=== PATIENT | male | born 1985 | race Caucasian/White ===

== ENCOUNTER 2016-10-21 17:11 | Emergency (ER) | payer OTHER ==
[2016-10-21] MEDS ORDERED: FLUORESCEIN OPHTH 1 MG STRIP As Ordered ONE (21:25)
[2016-10-21] MEDS ORDERED: TETRACAINE 0.5% OPHTH SOLN 4ML As Ordered ONE (21:25)
[2016-10-21] MEDS ORDERED: NORCO, ANEXSIA 5/325MG TABLET (HYDROcodone/ACETAMINOPHEN) As Ordered ONE (21:56)
[2016-10-21] MEDS ORDERED: ADACEL/BOOSTRIX VACCINE (DIPHTH/PERTUSS/ACELL/TETANUS)0.5ML SYR (90715) As Ordered ONE (21:56)
[2016-10-21] MEDS ORDERED: ERYTHROMYCIN OPHTH OINT As Ordered ONE (21:56)
--- NOTE | 2016-10-21 22:23 | EDDOCDS ---
Physician Documentation [facility] Name: Hernan Sosa Age: 30 yrs Sex: Male : 1985 Arrival Date: 10/21/2016 Time: 17:11 Bed I10 / 23 Private MD: NO PRIMARY PHYSICIAN, . Disposition: 10/21/16 21:39 Discharged to Home/Self Care. Impression: Injury of conjunctiva and corneal abrasion without foreign body, right eye - with rust ring present . - Condition is Stable. - Discharge Instructions: Corneal Abrasion. - Prescriptions for [place] 5- 325 mg Oral Tablet - take 1 tablet by ORAL route every 6 hours As needed MDD: 4 tabs; 12 tablet. Erythromycin 5 mg/gram (0.5 %) Ophthalmic Ointment - apply 1 centimeter by OPHTHALMIC route 2-3 times daily for 7 days; 1 tube. - Medication Reconciliation, Work Release Form - 3 day, Local Pharmacy Hours form. - Follow up: Bernard Morales; When: Call to arrange an appointment; Reason: Recheck today's complaints, Continuance of care. - Problem is new. - Symptoms are unchanged. - Notes: use erythromycin ointment in right eye every 8hrs Historical: - Allergies: no known allergies; - Home Meds: 1. none - PMHx: Hypertension; - PSHx: Hernia repair; - Social history: Smoking status: Patient states was never smoker of tobacco. No barriers to communication noted, The patient speaks fluent S[place] Tome[place], Speaks appropriately for age. - Family history: Not pertinent. - : The pt / caregiver states he / she is not on anticoagulants. Home medication list is obtained from the patient. - Exposure Risk Screening:: None identified. Vital Signs: 10/21 17:14 BP 161 / 76; Pulse 72; Resp 18 S; Temp 97.1(O); Pulse Ox 100% on R/A; Weight 90.72 kg / gr2 200 lbs (R); Height 6 ft. 0 in. (182.88 cm) (R); Pain 8/10; 22:21 BP 151 / 72; Pulse 70; Resp 16; Temp 97.2; Pulse Ox 100% on R/A; ld5 17:14 Body Mass Index 27.12 (90.72 kg, 182.88 cm) gr2 Visual Acuity: 20:31 Left Eye Visual acuity 20/40, Pupil size 3 mm, ; Right Eye Visual acuity 20/40, Pupil cz size 3 mm, ; Both Eyes Visual acuity 20/40; Without Lenses; MDM: 18:38 Visual Acuity ordered. dt4 18:38 Misc. Nursing Order ordered. dt4 21:21 Fluorescein Strip 1 strips Ophthalmic once ordered. mo1 21:21 Tetracaine (PF) Drops 0.5 % 2 drps Ophthalmic once ordered. mo1 21:41 HYDROcodone-acetaminophen 5 mg-325 mg 1 tabs PO once ordered. mo1 21:41 Tetanus- Diptheria-Acellular Pertussis 0.5 ml IM once; Routine booster 10-64yrs, >64 mo1 with child contact [place] [employer] ordered. 21:41 erythromycin Ointment 1 applic Ophthalmic once ordered. 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 Exp: 11/16/2018. Lot #: [id number]. } Route: IM; Site: left deltoid; 22:07 Drug: HYDROcodone-acetaminophen 1 tabs [hydrocodone 5 mg-acetaminophen 325 mg tablet (1 cjh tabs)] Route: PO; 22:21 Follow up: Response: Confirmed pt not driving.; Pt left department before re-evaluation ld5 is appropriate 22:07 Drug: erythromycin 1 applic [erythromycin 5 mg/gram (0.5 %) eye ointment (1 applic)] [facility] Route: Ophthalmic; Site: right eye; Signatures: Magdaleno Leonardo RN RN cz Rosalia Rizo RN RN ld5 Francois Pena PA PA mo1 Anette Messer PA-C PAEmekaC dt4 Tri Murphy RN [facility]
--- NOTE | 2016-10-21 22:24 | EDDOCDS ---
Nurse's Notes [facility] Name: Hernan Sosa Age: 30 yrs Sex: Male : 1985 Arrival Date: 10/21/2016 Time: 17:11 Bed I10 / 23 Private MD: NO PRIMARY PHYSICIAN, . Diagnosis: Injury of conjunctiva and corneal abrasion without foreign body, right eye-with rust ring present Presentation: 10/21 17:27 Presenting complaint: Patient states: Pt believes he has a piece of metal stuck in his ld5 eye. Happened yesterday at work. Mechanism of Injury: Grinding. The patient reports a positive loss of vision. The patient's loss of vision began yesterday. Adult Sepsis Screening: The patient does not have new or worsening altered mentation. Patient's respiratory rate is less than 22. Systolic blood pressure is greater than 100. Patient has a qSOFA score of 0- Negative Sepsis Screen. Suicide/Homicide risk assessment- the patient denies having any suicidal and/or homicidal ideations and does not present with any other emotional, behavioral or mental health complaints. 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 Transition of care: patient was not received from another setting of care. 17:27 Acuity: RAFAELA Level 4 ld5 17:27 Method Of Arrival: Walkin/Carried/Asstd ld5 Triage Assessment: 17:29 General: Appears uncomfortable. Pain: Location: right eye Pain currently is 8 out of 10 ld5 on a pain scale. Pain began 1 day ago. HIV screening NA for this visit Offered previously. EENT: redness to right eye, swelling around right eye, watering noted from eye. Respiratory: Airway is patent. Historical: - Allergies: no known allergies; - Home Meds: 1. none - PMHx: Hypertension; - PSHx: Hernia repair; - Social history: Smoking status: Patient states was never smoker of tobacco. No barriers to communication noted, The patient speaks fluent Kiswahili, Speaks appropriately for age. - Family history: Not pertinent. - : The pt / caregiver states he / she is not on anticoagulants. Home medication list is obtained from the patient. - Exposure Risk Screening:: None identified. Screenin:31 Screening information is obtained from the patient. Fall risk: No risks identified. cz Assistance ADL's: requires no assistance with activities of daily living. Abuse/DV Screen: The patient / caregiver reports he/she is: not in a situation that causes fear, pain or injury. Nutritional screening: No deficits noted. home support is adequate. 22:21 Advance Directives: There is no active DNR order. ld5 Assessment: 20:31 General: alert male with right eye redness and discomfort question f.b.. cz 21:27 General: Appears in no apparent distress, comfortable, Behavior is appropriate for age, h cooperative, awaiting evaluation, assisted patient in finding bathroom, ambulates with steady gate, no assist required. 22:21 General: Appears in no apparent distress. Pain: Location: right eye. Neurological: ld5 Level of Consciousness is awake, alert. Respiratory: Airway is patent Respiratory effort is even, unlabored. Vital Signs: 17:14 BP 161 / 76; Pulse 72; Resp 18 S; Temp 97.1(O); Pulse Ox 100% on R/A; Weight 90.72 kg gr2 (R); Height 6 ft. 0 in. (182.88 cm) (R); Pain 8/10; 22:21 BP 151 / 72; Pulse 70; Resp 16; Temp 97.2; Pulse Ox 100% on R/A; ld5 17:14 Body Mass Index 27.12 (90.72 kg, 182.88 cm) gr2 Vitals: 17:14 Log In Time: October 21, 2016 at 17:14. gr2 Visual Acuity: 20:31 Left Eye Visual acuity 20/40, Pupil size 3 mm, ; Right Eye Visual acuity 20/40, Pupil cz size 3 mm, ; Both Eyes Visual acuity 20/40; Without Lenses; ED Course: 17:12 Patient visited by Charo Ansari. gr2 17:12 Patient moved to Waiting gr2 17:13 NO PRIMARY PHYSICIAN, . is Private Physician. gr2 17:14 Patient visited by Charo Ansari. gr2 17:14 Patient moved to Pre RCE gr2 17:28 Triage Initiated ld5 17:30 Patient visited by Rosalia Rizo RN. ld5 20:23 Patient moved to I10 / 23 cz 20:31 The patient / caregiver is instructed regarding the plan of care and ED course. cz 21:18 Francois Pena PA is PHCP. mo1 21:18 Ady Dubois DO is Attending Physician. mo1 21:26 Patient visited by Francois Pena PA. mo1 21:39 Bernard Morales is Referral Physician. mo1 22:21 No IV's were initiated during this patient's visit. No procedures done that require ld5 assistance. 22:23 Patient visited by Rosalia Rizo RN. ld5 Administered Medications: 21:49 Drug: Fluorescein 1 strips [fluorescein 1 mg eye strips (1 strips)] {Note: obtained for [facility] provider to administer.} Route: Ophthalmic; Site: right eye; 21:49 Drug: Tetracaine (PF) 2 drps [tetracaine HCl (PF) 0.5 % eye drops (2 drps)] {Note: [facility] obtained for provider to administer.} Route: Ophthalmic; Site: right eye; 22:03 Drug: Tetanus- Diptheria-Acellular Pertussis 0.5 ml [diphth,pertussis(acel),tetanus 2.5 [facility] Lf unit-8 mcg-5 Lf/0.5mL IM syringe (0.5 mL)] {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 Exp: 11/16/2018. Lot #: [id number]. } Route: IM; Site: left deltoid; 22:07 Drug: HYDROcodone-acetaminophen 1 tabs [hydrocodone 5 mg-acetaminophen 325 mg tablet (1 [facility] tabs)] Route: PO; 22:21 Follow up: Response: Confirmed pt not driving.; Pt left department before re-evaluation ld5 is appropriate 22:07 Drug: erythromycin 1 applic [erythromycin 5 mg/gram (0.5 %) eye ointment (1 applic)] [facility] Route: Ophthalmic; Site: right eye; Order Results: There are currently no results for this order. Outcome: 21:39 Discharge ordered by Provider. mo1 22:21 Discharge Assessment: Patient awake, alert and oriented x 3. No cognitive and/or ld5 functional deficits noted. Patient verbalized understanding of disposition instructions. patient administered narcotics - yes. Pt provided with safe discharge. The following High Risk Discharge criteria are identified: None. Discharged to home ambulatory, with family. Condition: stable. Discharge instructions given to patient, family, Instructed on discharge instructions, follow up and referral plans. medication usage, no driving heavy equipment, Demonstrated understanding of instructions, medications, Pt was receptive of discharge instructions/ teaching. Prescriptions given X 2. Work note provided to patient. No special radiology studies were completed. Property :Personal belongings accompany Pt. 22:23 Patient left the ED. ld5 Signatures: Magdaleno Leonardo, RN Rosalia Navarro RN RN ld5 Tri Murphy RN RN Charo Magana 2 Francois Pena PA PA mo1 MTDD
--- NOTE | 2016-10-23 23:23 | EDDOCDS ---
Physician Documentation [facility] Name: Hernan Sosa Age: 30 yrs Sex: Male : 1985 Arrival Date: 10/21/2016 Time: 17:11 Bed I10 / 23 Private MD: NO PRIMARY PHYSICIAN, . Disposition: 10/21/16 21:39 Discharged to Home/Self Care. Impression: Injury of conjunctiva and corneal abrasion without foreign body, right eye - with rust ring present . - Condition is Stable. - Discharge Instructions: Corneal Abrasion. - Prescriptions for [place] 5- 325 mg Oral Tablet - take 1 tablet by ORAL route every 6 hours As needed MDD: 4 tabs; 12 tablet. Erythromycin 5 mg/gram (0.5 %) Ophthalmic Ointment - apply 1 centimeter by OPHTHALMIC route 2-3 times daily for 7 days; 1 tube. - Medication Reconciliation, Work Release Form - 3 day, Local Pharmacy Hours form. - Follow up: Bernard Morales; When: Call to arrange an appointment; Reason: Recheck today's complaints, Continuance of care. - Problem is new. - Symptoms are unchanged. - Notes: use erythromycin ointment in right eye every 8hrs Historical: - Allergies: no known allergies; - Home Meds: 1. none - PMHx: Hypertension; - PSHx: Hernia repair; - Social history: Smoking status: Patient states was never smoker of tobacco. No barriers to communication noted, The patient speaks fluent Salvadorean, Speaks appropriately for age. - Family history: Not pertinent. - : The pt / caregiver states he / she is not on anticoagulants. Home medication list is obtained from the patient. - Exposure Risk Screening:: None identified. Vital Signs: 10/21 17:14 BP 161 / 76; Pulse 72; Resp 18 S; Temp 97.1(O); Pulse Ox 100% on R/A; Weight 90.72 kg / gr2 200 lbs (R); Height 6 ft. 0 in. (182.88 cm) (R); Pain 8/10; 22:21 BP 151 / 72; Pulse 70; Resp 16; Temp 97.2; Pulse Ox 100% on R/A; ld5 17:14 Body Mass Index 27.12 (90.72 kg, 182.88 cm) gr2 Visual Acuity: 20:31 Left Eye Visual acuity 20/40, Pupil size 3 mm, ; Right Eye Visual acuity 20/40, Pupil cz size 3 mm, ; Both Eyes Visual acuity 20/40; Without Lenses; MDM: 18:38 Visual Acuity ordered. dt4 18:38 Misc. Nursing Order ordered. dt4 21:21 Fluorescein Strip 1 strips Ophthalmic once ordered. mo1 21:21 Tetracaine (PF) Drops 0.5 % 2 drps Ophthalmic once ordered. mo1 21:41 HYDROcodone-acetaminophen 5 mg-325 mg 1 tabs PO once ordered. mo1 21:41 Tetanus- Diptheria-Acellular Pertussis 0.5 ml IM once; Routine booster 10-64yrs, >64 mo1 with child contact [place] [employer] ordered. 21:41 erythromycin Ointment 1 applic Ophthalmic once ordered. mo1 22:33 [facility] Payment Agreement was scanned into [employer] and attached to record. [facility] [place] 22:33 Financial registration complete. [facility] [place] 10/22 18:15 T-Sheet-- Draft Copy was scanned into [employer] and attached to record. 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 Exp: 11/16/2018. Lot #: [id number]. } Route: IM; Site: left deltoid; 22:07 Drug: HYDROcodone-acetaminophen 1 tabs [hydrocodone 5 mg-acetaminophen 325 mg tablet (1 cjh tabs)] Route: PO; 22:21 Follow up: Response: Confirmed pt not driving.; Pt left department before re-evaluation ld5 is appropriate 22:07 Drug: erythromycin 1 applic [erythromycin 5 mg/gram (0.5 %) eye ointment (1 applic)] [facility] Route: Ophthalmic; Site: right eye; Signatures: Magdaleno Leonardo RN RN Rosalia Morales RN RN ld5 Francois Pena PA PA mo1 Anette Messer PA-C PA-C dt4 Deedee Rankin Kathie klr Hafner, Jane RN [facility] The chart was reviewed and I authenticate all verbal orders and agree with the evaluation and treatment provided.Attachments: 22:33 [facility] Payment Agreement gjb 10/22 18:15 T-Sheet-- Draft Copy kl Chart Complete MTDD
--- NOTE | 2016-10-23 23:23 | EDDOCDS ---
Nurse's Notes [facility] Name: Hernan Sosa Age: 30 yrs Sex: Male : 1985 Arrival Date: 10/21/2016 Time: 17:11 Bed I10 / 23 Private MD: NO PRIMARY PHYSICIAN, . Diagnosis: Injury of conjunctiva and corneal abrasion without foreign body, right eye-with rust ring present Presentation: 10/21 17:27 Presenting complaint: Patient states: Pt believes he has a piece of metal stuck in his ld5 eye. Happened yesterday at work. Mechanism of Injury: Grinding. The patient reports a positive loss of vision. The patient's loss of vision began yesterday. Adult Sepsis Screening: The patient does not have new or worsening altered mentation. Patient's respiratory rate is less than 22. Systolic blood pressure is greater than 100. Patient has a qSOFA score of 0- Negative Sepsis Screen. Suicide/Homicide risk assessment- the patient denies having any suicidal and/or homicidal ideations and does not present with any other emotional, behavioral or mental health complaints. 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 Transition of care: patient was not received from another setting of care. 17:27 Acuity: RAFAELA Level 4 ld5 17:27 Method Of Arrival: Walkin/Carried/Asstd ld5 Triage Assessment: 17:29 General: Appears uncomfortable. Pain: Location: right eye Pain currently is 8 out of 10 ld5 on a pain scale. Pain began 1 day ago. HIV screening NA for this visit Offered previously. EENT: redness to right eye, swelling around right eye, watering noted from eye. Respiratory: Airway is patent. Historical: - Allergies: no known allergies; - Home Meds: 1. none - PMHx: Hypertension; - PSHx: Hernia repair; - Social history: Smoking status: Patient states was never smoker of tobacco. No barriers to communication noted, The patient speaks fluent Uzbek, Speaks appropriately for age. - Family history: Not pertinent. - : The pt / caregiver states he / she is not on anticoagulants. Home medication list is obtained from the patient. - Exposure Risk Screening:: None identified. Screenin:31 Screening information is obtained from the patient. Fall risk: No risks identified. cz Assistance ADL's: requires no assistance with activities of daily living. Abuse/DV Screen: The patient / caregiver reports he/she is: not in a situation that causes fear, pain or injury. Nutritional screening: No deficits noted. home support is adequate. 22:21 Advance Directives: There is no active DNR order. ld5 Assessment: 20:31 General: alert male with right eye redness and discomfort question f.b.. cz 21:27 General: Appears in no apparent distress, comfortable, Behavior is appropriate for age, h cooperative, awaiting evaluation, assisted patient in finding bathroom, ambulates with steady gate, no assist required. 22:21 General: Appears in no apparent distress. Pain: Location: right eye. Neurological: ld5 Level of Consciousness is awake, alert. Respiratory: Airway is patent Respiratory effort is even, unlabored. Vital Signs: 17:14 BP 161 / 76; Pulse 72; Resp 18 S; Temp 97.1(O); Pulse Ox 100% on R/A; Weight 90.72 kg gr2 (R); Height 6 ft. 0 in. (182.88 cm) (R); Pain 8/10; 22:21 BP 151 / 72; Pulse 70; Resp 16; Temp 97.2; Pulse Ox 100% on R/A; ld5 17:14 Body Mass Index 27.12 (90.72 kg, 182.88 cm) gr2 Vitals: 17:14 Log In Time: October 21, 2016 at 17:14. gr2 Visual Acuity: 20:31 Left Eye Visual acuity 20/40, Pupil size 3 mm, ; Right Eye Visual acuity 20/40, Pupil cz size 3 mm, ; Both Eyes Visual acuity 20/40; Without Lenses; ED Course: 17:12 Patient visited by Charo Ansari. gr2 17:12 Patient moved to Waiting gr2 17:13 NO PRIMARY PHYSICIAN, . is Private Physician. gr2 17:14 Patient visited by Charo Ansari. gr2 17:14 Patient moved to Pre RCE gr2 17:28 Triage Initiated ld5 17:30 Patient visited by Rosalia Rizo RN. ld5 20:23 Patient moved to I10 / 23 cz 20:31 The patient / caregiver is instructed regarding the plan of care and ED course. cz 21:18 Francois Pena PA is PHCP. mo1 21:18 Ady Dubois DO is Attending Physician. mo1 21:26 Patient visited by Francois Pena PA. mo1 21:39 Bernard Morales is Referral Physician. mo1 22:21 No IV's were initiated during this patient's visit. No procedures done that require ld5 assistance. 22:23 Patient visited by Rosalia Rizo RN. ld5 22:33 [facility] Payment Agreement was scanned into [employer] and attached to record. gjb 22:43 Patient name changed from Christopher\S\\S\Tyo\S\ to Christopher\S\ \S\Tyo. EDMS 10/22 18:15 T-Sheet-- Draft Copy was scanned into [employer] and attached to record. 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 Exp: 11/16/2018. Lot #: [id number]. } Route: IM; Site: left deltoid; 22:07 Drug: HYDROcodone-acetaminophen 1 tabs [hydrocodone 5 mg-acetaminophen 325 mg tablet (1 [facility] tabs)] Route: PO; 22:21 Follow up: Response: Confirmed pt not driving.; Pt left department before re-evaluation ld5 is appropriate 22:07 Drug: erythromycin 1 applic [erythromycin 5 mg/gram (0.5 %) eye ointment (1 applic)] [facility] Route: Ophthalmic; Site: right eye; Order Results: There are currently no results for this order. Outcome: 21:39 Discharge ordered by Provider. mo1 22:21 Discharge Assessment: Patient awake, alert and oriented x 3. No cognitive and/or ld5 functional deficits noted. Patient verbalized understanding of disposition instructions. patient administered narcotics - yes. Pt provided with safe discharge. The following High Risk Discharge criteria are identified: None. Discharged to home ambulatory, with family. Condition: stable. Discharge instructions given to patient, family, Instructed on discharge instructions, follow up and referral plans. medication usage, no driving heavy equipment, Demonstrated understanding of instructions, medications, Pt was receptive of discharge instructions/ teaching. Prescriptions given X 2. Work note provided to patient. No special radiology studies were completed. Property :Personal belongings accompany Pt. 22:23 Patient left the ED. ld5 Signatures: Dispatcher [employer] EDMS Magdaleno Leonardo RN RN cz Rosalia Rizo RN RN ld5 Tri Murphy RN RN Charo Magana2 Francois Pena PA PA mo1 Beck, Gabriela gjb Redder, Kathie klr Chart Complete [facility]
--- NOTE | 2016-10-23 23:23 | EDDOCDS ---
Physician Documentation [facility] Name: Hernan Sosa Age: 30 yrs Sex: Male : 1985 Arrival Date: 10/21/2016 Time: 17:11 Bed I10 / 23 Private MD: NO PRIMARY PHYSICIAN, . Disposition: 10/21/16 21:39 Discharged to Home/Self Care. Impression: Injury of conjunctiva and corneal abrasion without foreign body, right eye - with rust ring present . - Condition is Stable. - Discharge Instructions: Corneal Abrasion. - Prescriptions for [place] 5- 325 mg Oral Tablet - take 1 tablet by ORAL route every 6 hours As needed MDD: 4 tabs; 12 tablet. Erythromycin 5 mg/gram (0.5 %) Ophthalmic Ointment - apply 1 centimeter by OPHTHALMIC route 2-3 times daily for 7 days; 1 tube. - Medication Reconciliation, Work Release Form - 3 day, Local Pharmacy Hours form. - Follow up: Bernard Morales; When: Call to arrange an appointment; Reason: Recheck today's complaints, Continuance of care. - Problem is new. - Symptoms are unchanged. - Notes: use erythromycin ointment in right eye every 8hrs Historical: - Allergies: no known allergies; - Home Meds: 1. none - PMHx: Hypertension; - PSHx: Hernia repair; - Social history: Smoking status: Patient states was never smoker of tobacco. No barriers to communication noted, The patient speaks fluent [place]ic, Speaks appropriately for age. - Family history: Not pertinent. - : The pt / caregiver states he / she is not on anticoagulants. Home medication list is obtained from the patient. - Exposure Risk Screening:: None identified. Vital Signs: 10/21 17:14 BP 161 / 76; Pulse 72; Resp 18 S; Temp 97.1(O); Pulse Ox 100% on R/A; Weight 90.72 kg / gr2 200 lbs (R); Height 6 ft. 0 in. (182.88 cm) (R); Pain 8/10; 22:21 BP 151 / 72; Pulse 70; Resp 16; Temp 97.2; Pulse Ox 100% on R/A; ld5 17:14 Body Mass Index 27.12 (90.72 kg, 182.88 cm) gr2 Visual Acuity: 20:31 Left Eye Visual acuity 20/40, Pupil size 3 mm, ; Right Eye Visual acuity 20/40, Pupil cz size 3 mm, ; Both Eyes Visual acuity 20/40; Without Lenses; MDM: 18:38 Visual Acuity ordered. dt4 18:38 Misc. Nursing Order ordered. dt4 21:21 Fluorescein Strip 1 strips Ophthalmic once ordered. mo1 21:21 Tetracaine (PF) Drops 0.5 % 2 drps Ophthalmic once ordered. mo1 21:41 HYDROcodone-acetaminophen 5 mg-325 mg 1 tabs PO once ordered. mo1 21:41 Tetanus- Diptheria-Acellular Pertussis 0.5 ml IM once; Routine booster 10-64yrs, >64 mo1 with child contact [place] [employer] ordered. 21:41 erythromycin Ointment 1 applic Ophthalmic once ordered. mo1 22:33 [facility] Payment Agreement was scanned into [employer] and attached to record. banner 22:33 Financial registration complete. banner 10/22 18:15 T-Sheet-- Draft Copy was scanned into [employer] and attached to record. 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 Exp: 11/16/2018. Lot #: [id number]. } Route: IM; Site: left deltoid; 22:07 Drug: HYDROcodone-acetaminophen 1 tabs [hydrocodone 5 mg-acetaminophen 325 mg tablet (1 cjh tabs)] Route: PO; 22:21 Follow up: Response: Confirmed pt not driving.; Pt left department before re-evaluation ld5 is appropriate 22:07 Drug: erythromycin 1 applic [erythromycin 5 mg/gram (0.5 %) eye ointment (1 applic)] [facility] Route: Ophthalmic; Site: right eye; Signatures: Magdaleno Leonardo RN RN Rosalia Morales RN RN ld5 Francois Pena PA PA mo1 Anette Messer PA-C PA-C dt4 Deedee Rankin Kathie klr Hafner, Jane RN [facility] The chart was reviewed and I authenticate all verbal orders and agree with the evaluation and treatment provided.Attachments: 22:33 [facility] Payment Agreement gjb 10/22 18:15 T-Sheet-- Draft Copy kl Chart Complete MTDD
== END 2016-10-21 22:23 | disposition home or self-care (01) ==
LOC: M ED 17:11
DX: S05.01XA Injury of conjunctiva and corneal abrasion without foreign body, right eye, initial encounter (principal); X18.XXXA Contact with other hot metals, initial encounter; Y92.89 Other specified places as the place of occurrence of the external cause; Y93.89 Activity, other specified; Y99.0 Civilian activity done for income or pay; I10 Essential (primary) hypertension